=== PATIENT | female | born 1975 | race Two or more races ===

== ENCOUNTER 2016-06-25 12:45 | Emergency (ER) | payer OTHER ==
[2016-06-25 12:51] VITALS: BP 126/79; PULSE 100; TEMP 98.9; BMI 29.3
[2016-06-25] MEDS ORDERED: ACETAMINOPHEN 325 MG TABLET (FP) PO ONE (13:40)
[2016-06-25] MEDS ORDERED: ACETAMINOPHEN 325 MG TABLET (FP) ONE (13:47)
--- NOTE | 2016-06-25 13:50 | PDOC ---
History of Present Illness - General Chief Complaint: Cold Symptoms Stated Complaint: FEVER, BODYACHES Time Seen by Provider: 06/25/16 13:07 - History of Present Illness Initial Comments: 06/25/16 13:41 CHIEF COMPLAINT: sore throat, headache, bodyaches HISTORY OF PRESENT ILLNESS: 41 yo F with hx of NIDDM presents to [facility] with sore throat x 4 days and subjective fever since yesterday. Patient complains of pain to "my whole body and my head" and states she has difficulty swallowing due to pain. No recent travel or sick contacts. PAST MEDICAL HISTORY: Denies past medical history FAMILY HISTORY: Denies SOCIAL HISTORY: Denies tobacco, alcohol, illicit drug use. SURGICAL HISTORY: Denies ALLERGIES: No known drug allergies REVIEW OF SYSTEMS General/Constitutional: Subjective fever and chills x 1 day. Denies weakness, weight change. HEENT: Sore throat x 4 days. Denies change in vision. Denies ear pain or discharge. Cardiovascular: Denies chest pain or shortness of breath. Respiratory: Denies cough, wheezing, or hemoptysis. Gastrointestinal: Denies nausea, vomiting, diarrhea or constipation. Denies rectal bleeding. Genitourinary: Denies dysuria, frequency, or change in urination. Musculoskeletal: Denies joint or muscle swelling or pain. Denies neck or back pain. Skin and breasts: Denies rash or easy bruising. Neurologic: Headache. Denies vertigo, loss of consciousness, or loss of sensation. PHYSICAL EXAM General Appearance: Well-appearing, appropriately dressed. No apparent distress. HEENT: Tonsils 2+. Swelling and exudate to L tonsil. 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 EOMI , PERRLA, normal ENT inspection, normal voice, TMs normal, pharynx normal. No conjunctival pallor. No photophobia, scleral icterus. Neck: B/l anterior cervical lymphadenopathy. Supple. Trachea midline. No tenderness, rigidity, carotid bruit, stridor, lymphadenopathy, or thyromegaly. Respiratory/Chest: Lungs CTAB. Cardiovascular: RRR. S1, S2. Gastrointestinal/Abdominal: Normal bowel sounds. Abdomen soft, non-distended. No tenderness or rebound tenderness. No organomegaly, pulsatile mass, guarding , hernia, hepatomegaly, splenomegaly. Musculoskeletal/Extremities: Normal inspection. FROM of all extremities, normal capillary refill. Pelvis Stable. No CVA tenderness. No tenderness to extremities, pedal edema, swelling, erythema or deformity. Integumentary: Appropriate color, dry, warm. No cyanosis, erythema, jaundice or rash Neurologic: pigment mixer II-XII intact. Fully oriented, alert. Appropriate mood/affect. Motor strength 5/5. No appreciable EOM palsy, facial droop or sensory deficit. Past History - Past Medical History Allergies/Adverse Reactions: Allergies Allergy/AdvReac Type Severity Reaction Status Date / Time No Known Allergies Allergy Verified 06/25/16 12:51 Home Medications: Ambulatory Orders Acetaminophen [Tylenol -] 500 mg PO Q6H #100 tablet 06/25/16 Diabetes: Yes - Surgical History Abdominal Surgery: Yes (GET ALBERT) - Psycho/Social/Smoking Cessation Hx Suicidal Ideation: No Smoking History: Never smoked Information on smoking cessation initiated: No *Physical Exam - Vital Signs Last Vital Signs Temp Pulse Resp BP Pulse Ox 98.9 F 100 H 18 126/79 99 06/25/16 12:48 06/25/16 12:48 06/25/16 12:48 06/25/16 12:48 06/25/16 12:48 Medical Decision Making - Medical Decision Making 06/25/16 13:50 41 yo F with hx of NIDDM presents to [facility] with sore throat x 4 days and subjective fever since yesterday. -Strep, flu swab -650 mg Tylenol +strep A 500 mg amox bid x 10 days Tylenol for pain 06/25/16 14:33 Patient states she still is in pain and does not want to go home with pain. Discussed with patient that she has an infection and she can take Tylenol for pain; patient refuses to go home with throat discomfort. -30 mg Toradol -1.2mil units bicillin IM D/c amoxicillin rx *DC/Admit/Observation/Transfer Diagnosis at time of Disposition: Strep pharyngitis - Discharge Dispostion Disposition: HOME Condition at time of disposition: Stable Admit: No - Prescriptions Prescriptions: Acetaminophen [Tylenol -] 500 mg PO Q6H #100 tablet - Patient Instructions Printed Discharge Instructions: DI for Strep Throat Additional Instructions: Please take medications as prescribed and complete the entire course of antibiotics. If you experience fever that does not go away with Tylenol, fever , nausea, vomiting, diarrhea, or you have difficulty speaking, swallowing, or breathing due to swelling of your throat, or you have any new or worsening symptoms, please return to the ER. Por favor, tome los medicamentos prescritos y complete el curso completo de los antibiticos. Si experimenta fiebre que no desaparece con Tylenol, fiebre, n usea, vmito, diarrea, o si tiene dificultad para hablar, tragar o respirar debido a la hinchazn de la garganta, o tiene sntomas nuevos o que empeoran, por favor regrese al ER. Print Language: MOSOT[place]
[2016-06-25] MEDS ORDERED: KETOROLAC TROMETHAMINE 30 MG/1 ML VIAL IM ONE (14:32)
[2016-06-25] MEDS ORDERED: PENICILLIN G BENZATHINE 1,200,000 UNIT/2 ML PFS IM ONE (14:32)
[2016-06-25] MEDS ORDERED: KETOROLAC TROMETHAMINE 30 MG/1 ML VIAL ONE (14:34)
[2016-06-25] MEDS ORDERED: PENICILLIN G BENZATHINE 2,400,000 UNIT/4 ML PFS ONE (14:35)
== END 2016-06-25 14:51 | disposition home or self-care (01) ==
LOC: JERFT 12:45
PROC: 3E0233Z Introduction of Anti-inflammatory into Muscle, Percutaneous Approach (ICD-10-PCS; principal; 2016-06-25)
PROC: 3E02329 Introduction of Other Anti-infective into Muscle, Percutaneous Approach (ICD-10-PCS; 2016-06-25)
DX: J02.0 Streptococcal pharyngitis (principal); B95.0 Streptococcus, group A, as the cause of diseases classified elsewhere
CPT/HCPCS: 87070; 87077; 87430; 87804; 96372; 99281-25

== ENCOUNTER 2016-11-21 15:56 | Emergency (ER) | payer OTHER ==
[2016-11-21 16:00] VITALS: BP 145/82; PULSE 79; TEMP 98; BMI 29.8
[2016-11-21] MEDS ORDERED: KETOROLAC TROMETHAMINE 60 MG/2 ML VIAL IM ONE (16:32)
--- NOTE | 2016-11-21 16:32 | PDOC ---
History of Present Illness - General Chief Complaint: Pain Stated Complaint: RT HAND PAIN Time Seen by Provider: 11/21/16 16:21 History Source: Patient Exam Limitations: No Limitations - History of Present Illness Initial Comments: 11/21/16 16:35 Occurred: reports: just prior to arrival Severity: reports: mild, moderate Pain Location: reports: upper extremity Method of Injury: Yes: unknown Modifying Factors: improves with: None Associated Symptoms (Fall): denies symptoms Past History - Travel Traveled outside of the country in the last 30 days: No Close contact w/someone who was outside of country & ill: No - Past Medical History Allergies/Adverse Reactions: Allergies Allergy/AdvReac Type Severity Reaction Status Date / Time No Known Allergies Allergy Verified 11/21/16 16:00 Home Medications: Ambulatory Orders Naproxen [Naprosyn -] 500 mg PO BID #20 tablet 11/21/16 Diabetes: Yes - Surgical History Abdominal Surgery: Yes (TUMMY TUCK) - Suicide/Smoking/Psychosocial Hx Smoking History: Never smoked Information on smoking cessation initiated: No Hx Alcohol Use: No Drug/Substance Use Hx: No Substance Use Type: None Trauma Specific PMHX - Complaint Specific PMHX Back Injury: No Neck Injury: No Review of Systems - Review of Systems Able to Perform ROS?: Yes Is the patient limited Grenadian proficient: Yes Constitutional: Yes: Symptoms Reported, See HPI, Malaise. No: Fever, Loss of Appetite HEENTM: No: Symptoms Reported Respiratory: No: Symptoms reported ABD/GI: No: Symptoms Reported Musculoskeletal: Yes: Symptoms Reported, See HPI, Joint Swelling, Joint Stiffness Integumentary: Yes: Symptoms Reported, Erythema All Other Systems: Reviewed and Negative *Physical Exam - Vital Signs Last Vital Signs Temp Pulse Resp BP Pulse Ox 98 F 79 18 145/82 100 11/21/16 15:58 11/21/16 15:58 11/21/16 15:58 11/21/16 15:58 11/21/16 15:58 - Physical Exam General Appearance: Yes: Nourished, Appropriately Dressed, Apparent Distress HEENT: positive: KIET, Normal ENT Inspection, Normal Voice, TMs Normal, Pharynx Normal Neck: positive: Supple. negative: Tender, Lymphadenopathy (R), Lymphadenopathy (L) Musculoskeletal: positive: Normal Inspection Extremity: positive: Normal Capillary Refill, Tender (mild swelling and severe tenderness at the palmar aspect of fourth right hand MCP with reproduced worsening along tenderness up to elbow. Able to supinate and pronate but has reproduce pain with palpation to hand.). negative: Normal Range of Motion ( limited due to pain and swelling to palm) Integumentary: positive: Normal Color, Swelling Neurologic: positive: betting clerk II-XII NML intact, Fully Oriented, Alert, Normal Mood/ Affect, Normal Response, Motor Strength 5/5 Progress Note - Progress Note Progress Note: X-ray negative for fractures or dislocations. Tendinitis, will treat with NSAIDs , splint and have follow-up with orthopedist *DC/Admit/Observation/Transfer Diagnosis at time of Disposition: Tendonitis - Discharge Dispostion Disposition: HOME Condition at time of disposition: Stable Admit: No - Referrals Referrals: Kassy Cotton MD [Primary Care Provider] - Perez Cheatham MD [Staff Physician] - - Patient Instructions Printed Discharge Instructions: DI for Tendinitis Additional Instructions: Rest, ice to area on and off for 15 minutes 4-6 times a day Avoid heavy lifting or exercise until pain and swelling is resolved or until further directed Keep area highly elevated to reduce swelling Use splints/Mello wrap as directed Followup with orthopedist in one to 2 days if not improving, if significantly improved may wait one week for followup with orthopedist May use ibuprofen 2-200 mg tablets every 6 hours as needed for pain= a prescription of Naprosyn as directed - Post Discharge Activity Forms/Work/School Notes: Back to Work
[2016-11-21] MEDS ORDERED: KETOROLAC TROMETHAMINE 60 MG/2 ML VIAL ONE (16:38)
== END 2016-11-21 17:35 | disposition home or self-care (01) ==
LOC: JERFT 15:56
PROC: 3E0233Z Introduction of Anti-inflammatory into Muscle, Percutaneous Approach (ICD-10-PCS; principal; 2016-11-21)
DX: M77.9 Enthesopathy, unspecified (principal); E11.9 Type 2 diabetes mellitus without complications
CPT/HCPCS: 73130-TC-RT; 99281-25